=== PATIENT | female | born 1950 | race Caucasian/White ===

== ENCOUNTER → 2020-10-05 15:24 | Outpatient (BNVA) | payer MEDICARE, SELFPAY | PROVIDERS: PCP Internal Medicine; Visit Provider Urology | DX: N39.41 Urge incontinence (principal) | CPT/HCPCS: 81002; 99212 ==

== ENCOUNTER 2020-12-27 08:45 | Outpatient (REF) | payer MEDICARE, SELFPAY ==
[2020-12-27 11:47] LABS: Estimated Average Glucose 114 mg/dL; Hemoglobin A1c % 5.6 %
[2020-12-27 11:53] LABS: Alanine Aminotransferase 23 U/L (0-31); Albumin Level 4.3 g/dL (3.5-5.0); Alkaline Phosphatase 74 U/L (39-117); Anion Gap 18 (12-20); Aspartate Amino Transferase 21 U/L (5-31); Bilirubin Total 0.6 mg/dL (0.0-1.0); Blood Urea Nitrogen 28 mg/dL (9-16); Calcium 9.2 mg/dL (8.4-10.2); Carbon Dioxide 24 mmol/L (22-29); Chloride 105 mmol/L (96-108); Estimated Glomerular Filt Rate > 60; Glucose Random 104 mg/dL (60-115); Potassium 4.5 mmol/L (3.3-5.1); Sodium 142 mmol/L (135-145); Total Protein 6.8 g/dL (6.5-8.0)
[2020-12-27 12:15] LABS: Free T4 (Free Thyroxine) 1.26 ng/dL (0.71-1.85); Thyroid Stimulating Hormone 0.94 uIU/mL (0.32-4.0)
== END 2020-12-27 08:46 | disposition home or self-care (01) ==
LOC: HO.HMGCLDS 08:45
PROVIDERS: PCP Internal Medicine; Visit Provider Internal Medicine
DX: E03.9 Hypothyroidism, unspecified (principal); R73.03 Prediabetes; N18.9 Chronic kidney disease, unspecified
CPT/HCPCS: 36415; 80053; 83036; 84439; 84443

== ENCOUNTER 2021-04-07 14:54 | Outpatient (REF) | payer MEDICARE, SELFPAY ==
--- NOTE | ~2021-04-07 | US_ITS ---
EXAMINATION: US EXTRACRANIAL CAROTID DUPLEX, BILATERAL CLINICAL INFORMATION: Carotid bruit COMPARISON: Carotid ultrasound on 10/09/2017 TECHNIQUE: Real-time ultrasound and Doppler techniques (integrating B-mode 2-D vascular images, Doppler spectral analysis and color-flow Doppler imaging) were utilized to interrogate the extracranial carotid arteries, the vertebral arteries and proximal subclavian arteries bilaterally. The degree of stenosis is determined by criteria similar to NASCET. FINDINGS: Right Side: 1. There is no significant atherosclerotic plaque seen in the bifurcation/proximal ICA region. 2. The common carotid artery PSV proximally is 81 cm/s and distally 84 cm/s. 3. The proximal internal carotid artery velocities are 76 cm/s systolic and 22 cm/s diastolic. 4. The proximal external carotid artery PSV is 115 cm/s. 5. The vertebral artery shows antegrade flow. 6. The subclavian artery waveforms are normal. Left Side: 1. There is no significant atherosclerotic plaque seen in the bifurcation/proximal ICA region. 2. The common carotid artery PSV proximally is 97 cm/s and distally 76 cm/s. 3. The proximal internal carotid artery velocities are 59 cm/s systolic and 16 cm/s diastolic. 4. The proximal external carotid artery PSV is 99 cm/s. 5. The vertebral artery shows antegrade flow. 6. The subclavian artery waveforms are normal. US/US carotid duplex BI IMPRESSION: 1. RIGHT: Normal right internal carotid artery without atherosclerotic plaque or hemodynamically significant stenosis. 2. LEFT: Normal left internal carotid artery without atherosclerotic plaque or hemodynamically significant stenosis.
== END 2021-04-07 14:55 | disposition home or self-care (01) ==
LOC: HO.US 14:54
PROVIDERS: Visit Provider Internal Medicine
DX: R09.89 Other specified symptoms and signs involving the circulatory and respiratory systems (principal)
CPT/HCPCS: 93880

== ENCOUNTER 2022-10-27 14:03 | Outpatient (REF) | payer MEDICARE, SELFPAY ==
[2022-10-27 14:57] LABS: Estimated Average Glucose 111 mg/dL; Hemoglobin A1c % 5.5 %
[2022-10-27 15:40] LABS: Alanine Aminotransferase 32 U/L (0-31); Alkaline Phosphatase 95 U/L (39-117); Anion Gap 16 (12-20); Aspartate Amino Transferase 25 U/L (5-31); Bilirubin Total 0.6 mg/dL (0.0-1.0); Blood Urea Nitrogen 19 mg/dL (9-16); Calcium 9.2 mg/dL (8.4-10.2); Carbon Dioxide 22 mmol/L (22-29); Chloride 109 mmol/L (96-108); Estimated Glomerular Filt Rate > 60; Glucose Random 123 mg/dL (60-115); Potassium 4.7 mmol/L (3.3-5.1); Sodium 142 mmol/L (135-145); Total Protein 6.6 g/dL (6.5-8.0)
[2022-10-27 15:44] LABS: Free T4 (Free Thyroxine) 1.42 ng/dL (0.71-1.85); Thyroid Stimulating Hormone 1.02 uIU/mL (0.32-4.0)
== END 2022-10-27 14:04 | disposition home or self-care (01) ==
LOC: HO.LAB 14:03
PROVIDERS: PCP Internal Medicine; Visit Provider Internal Medicine
DX: E03.9 Hypothyroidism, unspecified (principal); I10 Essential (primary) hypertension; R73.03 Prediabetes; I25.10 Atherosclerotic heart disease of native coronary artery without angina pectoris
CPT/HCPCS: 36415; 80053; 83036; 84439; 84443

== ENCOUNTER 2023-10-08 17:06 | Emergency (ER) | payer MEDICARE, SELFPAY ==
[2023-10-08] VITALS (12 sets, daily range): BP systolic 111–141; BP diastolic 46–89; PULSE 60–81; RESP 16–20; TEMP 36.8; O2SAT 94–100; BMI 27.9
--- NOTE | ~2023-10-08 | XR_ITS ---
EXAMINATION: XR KNEE, LEFT CLINICAL INFORMATION: Fall. Pain COMPARISON: Left knee July 27, 2017 TECHNIQUE: Two views of the left knee. FINDINGS: There is no acute abnormality. No fracture. No dislocation. Marked degenerative changes. There is near [id number] contact at the medial femoral tibial joint. Marginal bone spurs of the femur and tibia at both the medial and lateral femoral tibial joint. Chondrocalcinosis of the medial and lateral meniscus. There is also soft tissue calcification the suprapatellar fossa XR/XR knee LT 2V IMPRESSION: 1. No acute abnormality. 2. Marked degenerative joint disease of the knee. Chondrocalcinosis.
--- NOTE | ~2023-10-08 | CT_ITS ---
EXAMINATION: HEAD CT WITHOUT CONTRAST CERVICAL SPINE CT WITHOUT CONTRAST CLINICAL INFORMATION: Unwitnessed fall. COMPARISON: CTA dated 11/25/2016 TECHNIQUE: Contiguous axial imaging of the head was performed without the administration of IV contrast. Axial multidetector volumetric images were also performed through the cervical spine without intravenous contrast. Multiplanar reconstructed images in coronal and sagittal orientations were submitted. This CT examination was performed using dose optimization techniques as appropriate, variously including the following: *Automated exposure control *Adjustment of mA and/or kV according to patient size (this includes techniques or standardized protocols for targeted exams where dose is matched to indication/reason for exam; i.e. extremities or head) *Use of iterative reconstruction technique DOSE: 1436 mGy-cm FINDINGS: HEAD: There is no evidence of acute intracranial hemorrhage or territorial infarction. No abnormal mass-effect or midline shift. No extra-axial fluid collections. Tobar to white matter differentiation is well preserved. Cavum septum pellucidum et vergae. Moderate enlargement of the ventricles, sulci, and extra-axial CSF spaces is indicative increased as compared to the prior study and consistent with progressive atrophy. Multiple areas of hypoattenuation in the subcortical and periventricular white matter are most consistent with chronic microangiopathic changes. Calcific atherosclerosis is present within the cavernous segments of the internal carotid arteries. 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 Hyperostosis frontalis interna. No acute fractures. Scalp soft tissues are unremarkable. The sinuses and mastoid air cells are clear. CERVICAL SPINE: Vertebral body heights are normal. No fractures of the vertebral bodies or posterior elements. There is mild right convex cervical kyphoscoliosis, likely related to degenerative disc disease. No acute subluxation. Degenerative osteophytes and sclerosis are present at the atlantodental articulation, though normal alignment is maintained. Craniocervical junction is normal. Multilevel degenerative disc disease is most notable at C5-C6 and C6-C7 with loss of vertebral disc height, endplate osteophytes, uncovertebral osteophytes. Facet arthropathy is most notable on the right at C4-C5 and on the left is C5-C6. Posterior disc osteophyte complex at C5-C6 produces mild central canal narrowing. No significant paravertebral soft tissue swelling. Atherosclerotic calcifications are present in the carotid arteries. Imaged portions of the lung apices are clear. Posttraumatic arthritis is suspected in the left sternoclavicular joint. CT/CT cervical spine wo IV con IMPRESSION: 1. No acute intracranial pathology. Moderate cerebral atrophy and chronic white matter microangiopathy. 2. No acute fracture or malalignment in the cervical spine. Multilevel degenerative spondylosis in the cervical spine.
--- NOTE | 2023-10-08 17:20 | ED_ITS ---
HPI - Fall General Chief Complaint: Fall Stated Complaint: SNF, UNWIT FALL, L KNEE PAIN,UNCOOPERATIVE Time Seen by Provider: 10/08/23 17:09 Source: EMS Mode of arrival: EMS Limitations: altered mental status History of Present Illness HPI Narrative: Patient is a 73 old female who presents to the emergency department via EMS from [facility] after concerns for potential unwitnessed fall. She was found sitting on the ground in her room awake and alert. She was reporting pain to her left knee. She has a history of Alzheimer's, is difficult to obtain any history from patient directly. Related Data Home Medications Medication Instructions Recorded Confirmed alirocumab 150 mg/mL subcutaneous 150 mg subcut Q2W 10/09/23 10/09/23 pen injector (Praluent Pen) alprazolam 0.25 mg tablet 0.25 mg PO BEDTIME PRN Agitation 10/09/23 10/09/23 amlodipine 10 mg tablet 10 mg PO DAILY 10/09/23 10/09/23 aspirin 81 mg tablet,delayed 81 mg PO DAILY 10/09/23 10/09/23 release bisacodyl 10 mg rectal suppository 10 mg SD DAILY PRN constiptation 10/09/23 10/09/23 ezetimibe 10 mg tablet 10 mg PO DAILY 10/09/23 10/09/23 isosorbide mononitrate 60 mg 60 mg PO DAILY 10/09/23 10/09/23 tablet,extended release 24 hr levothyroxine 100 mcg tablet 100 mcg PO DAILY@0630 10/09/23 10/09/23 (Synthroid) lisinopril 20 mg tablet 20 mg PO DAILY 10/09/23 10/09/23 melatonin 3 mg tablet 6 mg PO BEDTIME 10/09/23 10/09/23 nitroglycerin 0.4 mg sublingual 0.4 mg sublingual Q5M PRN Chest 10/09/23 10/09/23 tablet Pain omeprazole 20 mg capsule,delayed 20 mg PO DAILY@62910/09/23 10/09/23 release pravastatin 10 mg tablet 10 mg PO MoWeFr@0900 10/09/23 10/09/23 quetiapine 25 mg tablet 25 mg PO BID 10/09/23 10/09/23 sennosides 8.6 mg tablet (senna) 17.2 mg PO BID PRN Constipation 10/09/23 10/09/23 trazodone 50 mg tablet 25 mg PO BID PRN Agitation 10/09/23 10/09/23 Allergies Allergy/AdvReac Type Severity Reaction Status Date / Time latex [Latex] Allergy Intermediate HIVES Verified 10/09/23 02:56 amoxicillin Allergy Unknown Nausea Verified 10/09/23 02:56 erythromycin base AdvReac Intermediate NAUSEA & Verified 10/09/23 02:56 [Erythromycin Base] VOMITING Review of Systems Review of Systems: Yes all other systems are reviewed and are negative [facility] Past Medical History Attestation statement: The following information was validated with the patient. Source: old records reviewed Medical History Urgency of urination Thyroid disease Urgency incontinence Social History Social History Smoked in Last 30 Days: No Use of substances other than those prescribed or required for medical reasons: No Advance Directives: Yes Advance Directives on File: Yes Advance Directives Date on File: 10/08/23 Physical Exam Vital Signs: Vital Signs: Last Vital Signs Temp 97.6 F 10/09/23 01:24 Pulse 68 10/09/23 01:24 Resp 16 10/09/23 10:00 BP 145/57 H 10/09/23 01:24 Pulse Ox 96 10/09/23 01:24 O2 Del Method Room Air 10/09/23 01:24 BMI result Body Mass Index 27.9 Appearance: Alert.?Oriented to person, place and time. No acute distress.?Normal affect. Head: Normocephalic, atraumatic Eyes: Pupils equal, round and reactive to light.? EOMI. No nystagmus. ENT: Pharynx normal.?? Neck: Normal inspection.? Neck supple.??No midline cervical spine tenderness, step-offs, deformities. CVS: Heart sounds normal. Normal heart rate and rhythm.? Pulses normal.?? Respiratory: No respiratory distress.? Lung sounds clear to auscultation bilaterally?? Abdomen: Soft and non-tender. Normoactive bowel sounds. Skin: Skin warm and dry.? Normal skin color.? Extremities: Tenderness upon palpation of left knee and with range of knee?? No calf ttp? Neuro: Moves all extremities spontaneously. Sensation intact bilaterally. CN II- XII intact. No focal neuro deficits. Ambulates with normal steady gait. Course Reevaluation(s) Reevaluation #1: Difficulty obtaining CT, patient acutely agitated and combative when attempting to get her to lie supine on CT table. Patient received Geodon IM Time: 18:40 Reevaluation #2: Geodon with good effect, resting calmly on stretcher, awaiting CT at this time, no distress Time: 19:30 Reevaluation #3: Advised by nursing patient unable to complete CT attempting to get up off of the table, striking at staff, concern for safety, patient will receive haldol and benadryl IM Time: 21:08 Additional Reevaluation(s): 00:30 - CT of the head and cervical spine without acute etiology. At this time stable for discharge, she comes from an assisted living facility, at this time you are unable to make contact with staff at facility or patient's , it is unclear whether she would be able to obtain access to her residence tonight. She will be placed in physician observation so that case management involvement can occur in the morning and safe disposition can be assured. No acute distress, vitals stable. 1227-- spoke with Silva from care team. [facility]00 [facility].m. today. Medications Administered Discontinued Medications Generic Name Dose Route Start Last Admin Trade Name Freq PRN Reason Stop Dose Admin Diphenhydramine HCl 50 mg 10/08/23 21:03 10/08/23 21:30 Diphenhydramine Hcl 50 Mg/Ml Vial IM 10/08/23 21:04 50 mg ONCE ONE Administration Haloperidol Lactate 5 mg 10/08/23 21:03 10/08/23 21:30 Haloperidol Lactate 5 Mg/Ml Vial IM 10/08/23 21:04 5 mg ONCE ONE Administration Olanzapine 5 mg 10/09/23 03:57 10/09/23 04:06 Olanzapine 5 Mg Tablet PO 10/09/23 03:58 5 mg ONCE ONE Administration Ziprasidone 10 mg 10/08/23 18:31 10/08/23 18:49 Ziprasidone Mesylate 20 Mg Vial IM 10/08/23 18:32 10 mg ONCE ONE Administration Medical Decision Making Medical Decision Making MDM Narrative: Patient is a 73 old female with past medical history of Alzheimer's, hypothyroidism, anxiety, hypercholesterolemia, CAD, hypertension presenting to the emergency department via EMS after a possible unwitnessed fall found on the ground with reports of left knee pain to staff at assisted living facility. Due to her dementia I am unable to obtain any significant history from the patient, she is fixated on asking where her is. Her physical exam is notable for tenderness upon palpation to the left knee and with range of the knee. Plan to obtain CT head/cervical spine to exclude ICH/SDH/fracture/subluxation that I have a low suspicion for this, in addition will obtain XR of the left knee to exclude fracture/dislocation though clinically seems less likely, pain most likely secondary to contusion/sprain Differential Diagnosis Differential Diagnoses: The differential diagnosis associated with the presentation includes (See narrative above) Admission/Observation Consideration of admission/observation: Escalation of care including admission/observation considered (See narrative above and course narrative for further detail) Independent Interpretation I performed an independent interpretation of an: Plain X-Ray (I personally interpreted XR imaging of the left knee and agree with radiologist impression.) and CT Scan Radiology Impression Discussion of test interpretation with radiology: I have reviewed the radiologist's reading. Radiologist Impression: XR/XR knee LT 2V IMPRESSION: 1. No acute abnormality. 2. Marked degenerative joint disease of the knee. Chondrocalcinosis. CT/CT head/brain wo IV con IMPRESSION: 1. No acute intracranial pathology. Moderate cerebral atrophy and chronic white matter microangiopathy. 2. No acute fracture or malalignment in the cervical spine. Multilevel degenerative spondylosis in the cervical spine. Independent Historian Clinical information obtained from an independent historian. History obtained from or confirmed by: EMS External Record Review External record reviewed: Outpatient record Discharge Plan Discharge Clinical Impression: Fall Patient Disposition: Still a Patient Instructions: Fall Prevention (ED) Prescriptions: No Action trazodone 50 mg tablet 25 mg PO BID PRN (Reason: Agitation) lisinopril 20 mg tablet 20 mg PO DAILY aspirin 81 mg Tablet,Delayed Release (Dr/Ec) 81 mg PO DAILY levothyroxine [Synthroid] 100 mcg tablet 100 mcg PO DAILY@0630 isosorbide mononitrate 60 mg tablet extended release 24 hr 60 mg PO DAILY alprazolam 0.25 mg tablet 0.25 mg PO BEDTIME PRN (Reason: Agitation) amlodipine 10 mg tablet 10 mg PO DAILY omeprazole 20 mg capsule,delayed release(DR/EC) 20 mg PO DAILY@0630 ezetimibe 10 mg tablet 10 mg PO DAILY Praluent Pen 150 mg/mL pen injector 150 mg subcut Q2W sennosides [senna] 8.6 mg Tablet 17.2 mg PO BID PRN (Reason: Constipation) melatonin 3 mg Tablet 6 mg PO BEDTIME bisacodyl 10 mg Suppository 10 mg SD DAILY PRN (Reason: constiptation) nitroglycerin 0.4 mg Tablet, Sublingual 0.4 mg SUBLINGUAL Q5M PRN (Reason: Chest Pain) Rx Instructions: do not exceed 3 doses per episode quetiapine 25 mg tablet 25 mg PO BID pravastatin 10 mg Tablet 10 mg PO MoWeFr@0900 Referrals: [facility] [Other]
--- NOTE | 2023-10-08 18:37 | PC.NURSE ---
attempted times 2 to reach pts as POA. no answer.
--- NOTE | 2023-10-08 18:38 | PC.NURSE ---
this customs entry writer and Amirah GONZALEZ attempted IV on pt wihtout success. James MANN made aware, plan to IM pt for medical necessity.
[2023-10-08] MEDS: Ziprasidone Mesylate 20 MG VIAL 10 MG IM (18:49)
--- NOTE | 2023-10-08 18:56 | PC.NURSE ---
this rn assumed care of pt. pt IM with Brice, pt agitated and shouting and not able to re-driect at this time. pt refusing vitals, o2 sat 96%.
--- NOTE | 2023-10-08 19:10 | PC.NURSE ---
pt attempting to exit bed at this time, pt re-directed back into bed, given warm blanket fro comfort.
--- NOTE | 2023-10-08 21:15 | PC.NURSE ---
pt attempting to get out of bed. CT attempted to scan pt. pt unable to stay still on the table. james MANN aware.
[2023-10-08] MEDS: Haloperidol Lactate 5 MG/ML VIAL IM (21:30)
[2023-10-08] MEDS: diphenhydrAMINE HCL 50 MG/ML VIAL IM (21:30)
--- NOTE | 2023-10-08 21:30 | PC.NURSE ---
this rn at bedside, administered medications per nov. pt tolerated well. pt agitated, confused and attempting to exit bed without assistance. pt given warm blanket for comfort.
--- NOTE | 2023-10-08 22:04 | PC.NURSE ---
Addendum entered by Marsha Haskins 10/08/23 22:10: unable to obtain CT, James MANN aware. Original Note: pt taken to CT at this time.
--- NOTE | 2023-10-09 00:26 | PC.NURSE ---
pt sleeping, respirations even and unlabored.
--- NOTE | 2023-10-09 01:11 | PC.NURSE ---
attempted to contact [facility], unable to get in contact with staff at this time. James MANN aware.
[2023-10-09 01:24] VITALS: BP 145/57; PULSE 68; RESP 15; TEMP 36.4; O2SAT 96
--- NOTE | 2023-10-09 02:41 | PC.NURSE ---
pt changed into hospital attire at this time, pulse ox placed on toe, pt sating 99-100% room air, shelter monitor in place -68.
[2023-10-09] MEDS: OLANZapine 5 MG TABLET PO (04:06)
--- NOTE | 2023-10-09 04:08 | PC.NURSE ---
pt placed into hospital bed for comfort at this time.
--- NOTE | 2023-10-09 04:14 | PC.NURSE ---
Addendum entered by Prasanna Ennis 10/09/23 04:18: pt tolerated po meds in apple sauce. Original Note: pt agitated ripping off heart monitor/o2 monitor. unchanged after verbal reassurance and placing in hospital bed. warm blankets given. pt medicated per nov for agitation. pt sitting up in bed at this time yelling across ED to staff. bed alarm on. primary RN and Dr. Garcia aware.
[2023-10-09 08:00] VITALS: RESP 18
[2023-10-09 10:00] VITALS: RESP 16
--- NOTE | 2023-10-09 11:09 | PHA.MEDREC ---
Pharmacy Consult ? Medication Reconciliation Pharmacy has completed the medication reconciliation. Unable to speak with patient. Medication claim hx, discharge summary from [facility]
--- NOTE | 2023-10-09 12:39 | MHC.CM.ED ---
Received case management consult overnight. Patient came to the ER due to a fall. Work up is essentially negative. Staff was concerned about sending patient back to [facility] last night due to not being able to reach staff. Spoke with Nubia at [facility]. Nubia reports patient has advanced dementia but is typically independent in mobility. Patient will return to facility via BLS at 4pm. Spoke with patient's /HCP, Arya via telephone at [phone]. Casmir confirms patient has a history of dementia and is a resident of [facility]. Casmir agreeable to patient returning to facility. [facility] booked for 4pm. Patient, Andreina Koenig RN and Stephanie MANN aware. Continue to monitor for d/c needs.
[2023-10-09 12:54] LABS: COVID-19 Test Negative (Negative); IDNOW Serial# 9DB6401D
[2023-10-09] MEDS: ALPRAZolam 0.25 MG TABLET PO (13:04)
[2023-10-09] MEDS: Levothyroxine Sodium 100 MCG TABLET PO (13:04)
[2023-10-09] MEDS: lisinopriL 20 MG TABLET PO (13:57)
[2023-10-09] MEDS: Ezetimibe 10 MG TABLET PO (13:58)
[2023-10-09] MEDS: amLODIPine Besylate 10 MG TABLET PO (13:58)
[2023-10-09] MEDS: Omeprazole 20 MG CAPSULE.DR PO (13:58)
[2023-10-09] MEDS: Aspirin Enteric Coated 81 MG TABLET.DR PO (13:59)
[2023-10-09] MEDS: Isosorbide Mononitrate 60 MG TAB.ER.24H PO (13:59)
[2023-10-09 14:00] VITALS: BP 191/85; PULSE 54; RESP 16; TEMP 36.3; O2SAT 95
[2023-10-09] MEDS: QUEtiapine Fumarate 25 MG TABLET PO (14:03)
== END 2023-10-09 16:16 | disposition home or self-care (01) ==
PROVIDERS: Physician Assistant Medical; Emergency Provider Emergency Medicine; PCP Internal Medicine
DX: M25.562 Pain in left knee (principal); W19.XXXA Unspecified fall, initial encounter; Y93.9 Activity, unspecified; Y92.9 Unspecified place or not applicable; Y99.9 Unspecified external cause status; G30.9 Alzheimer's disease, unspecified; F02.80 Dementia in other diseases classified elsewhere, unspecified severity, without behavioral disturbance, psychotic disturbance, mood disturbance, and anxiety; E03.9 Hypothyroidism, unspecified; E78.00 Pure hypercholesterolemia, unspecified; I25.10 Atherosclerotic heart disease of native coronary artery without angina pectoris; I10 Essential (primary) hypertension; M11.262 Other chondrocalcinosis, left knee; M17.12 Unilateral primary osteoarthritis, left knee; Z11.52 Encounter for screening for COVID-19
CPT/HCPCS: 70450; 72125; 73560; 87635; 96372; 99284; J1200; J1630; J3486

== ENCOUNTER 2023-11-14 15:53 | Outpatient (REF) | payer MEDICARE, SELFPAY ==
[2023-11-14 16:10] LABS: MANUAL DIFF FLAG NO
[2023-11-14 17:32] LABS: Basophils Percent Auto 0.6 % (0-2); Eosinophils Absolute Auto 0.2 X10*3/uL (0.0-0.4); Eosinophils Percent Auto 3.1 % (0-4); Hematocrit 33.9 % (37.0-47.0); Hemoglobin 10.8 g/dl (12.0-16.0); Imm Gran Abs Auto 0.02 X10*3/uL (0.00-0.03); Imm Gran Pct Auto 0.4 % (0.0-0.4); Lymphocytes Percent Auto 20.3 % (20-40); Mean Corpuscular HGB Conc 31.9 g/dl (31.0-35.0); Mean Corpuscular Hemoglobin 29.9 pg (27.0-33.0); Mean Corpuscular Volume 93.9 fL (80.0-98.0); Mean Platelet Volume 12.6 fL (9.4-12.3); Monocytes Absolute Auto 0.4 X10*3/uL (0.1-1.2); Monocytes Percent Auto 6.8 % (2-11); Neutrophils Absolute Auto 3.5 x10*3/uL (2.0-8.3); Neutrophils Percent Auto 68.8 % (45-73); Platelet Count 179 X10*3/uL (160-400); Red Blood Count 3.61 X10*6/uL (4.20-5.50); Red Cell Distribution Width 15.6 % (11.0-16.0); White Blood Count 5.1 X10*3/uL (4.8-10.8)
[2023-11-14 17:37] LABS: Estimated Average Glucose 108 mg/dL; Hemoglobin A1c % 5.4 % (<6.0)
[2023-11-14 17:57] LABS: Alanine Aminotransferase 18 U/L (0-31); Alkaline Phosphatase 77 U/L (39-117); Anion Gap 10 (12-20); Aspartate Amino Transferase 18 U/L (5-31); B Type Natriuretic Peptide 106 pg/mL (<100); Bilirubin Total 0.3 mg/dL (0.0-1.0); Blood Urea Nitrogen 24 mg/dL (9-16); Calcium 9.1 mg/dL (8.4-10.2); Carbon Dioxide 26 mmol/L (22-29); Chloride 110 mmol/L (96-108); Estimated Glomerular Filt Rate 57; Glucose Random 109 mg/dL (60-115); Potassium 4.3 mmol/L (3.3-5.1); Sodium 142 mmol/L (135-145); Total Protein 6.8 g/dL (6.5-8.0)
[2023-11-14 18:14] LABS: Free T4 (Free Thyroxine) 0.96 ng/dL (0.71-1.85); Thyroid Stimulating Hormone 1.76 uIU/mL (0.32-4.0)
== END 2023-11-14 15:54 | disposition home or self-care (01) ==
LOC: HO.LAB 15:53
PROVIDERS: PCP Internal Medicine; Visit Provider Internal Medicine
DX: I10 Essential (primary) hypertension (principal); R60.0 Localized edema; R73.01 Impaired fasting glucose; I25.10 Atherosclerotic heart disease of native coronary artery without angina pectoris
CPT/HCPCS: 36415; 80053; 83036; 83880; 84439; 84443; 85025